=== PATIENT | male | born 1995 | race Caucasian/White ===

== ENCOUNTER 2022-12-21 12:42 | Outpatient (CLI) | payer SELFPAY | END 2022-12-21 12:43 | disposition home or self-care (01) | PROVIDERS: PCP Family Medicine; Visit Provider Family Medicine | DX: Z00.00 Encounter for general adult medical examination without abnormal findings (principal); E78.2 Mixed hyperlipidemia | CPT/HCPCS: 80048; 80061 ==

== ENCOUNTER 2023-11-08 15:25 | Outpatient (CLI) | payer BC, SELFPAY ==
[2023-11-08 23:47] LABS: Chlamydia DNA Amplified* NOT DETECTED (No Detected); GC DNA Amplified* NOT DETECTED (No Detected)
== END 2023-11-08 15:26 | disposition home or self-care (01) ==
LOC: NFLDUCREF 15:25
PROVIDERS: PCP Family Medicine; Visit Provider Nurse Practitioner
DX: N45.1 Epididymitis (principal)
CPT/HCPCS: 87491; 87591